=== PATIENT | female | born 1985 | race Two or more races ===

== ENCOUNTER 2024-11-21 12:46 | Emergency (ER) | payer MEDICAID, SELFPAY ==
[2024-11-21 12:47] VITALS: BMI 47.2
--- NOTE | 2024-11-21 13:06 | XR_ITS ---
Examination: Venous duplex lower extremity sonogram, bilateral. Date and time of exam: November 21, 2024 1406 hours INDICATIONS: Bilateral leg swelling beginning 5 days ago Technique: Multiple sonographic images of the deep venous system have been obtained. B-mode/2-D grayscale imaging of vascular structures and Doppler spectral analysis (waveforms) and color performed Both legs are examined. Findings: Deep venous systems do not demonstrate abnormal echogenicity. All visualized deep veins exhibit compressibility. All visualized deep veins exhibit augmentation. Impression: Negative for deep vein thrombosis
--- NOTE | 2024-11-21 13:06 | PD.EDADULT ---
ED General RME/HPI General Chief complaint: General Adult/Misc Complain Stated complaint: BLE SWELLING X 4 DAYS; THIS IS NEW Time Seen by Provider: 11/21/24 12:54 Source: patient Arrival date/time: 11/21/24 12:46 39-year-old female with no known medical history presents to the emergency room with a chief complaint of bilateral lower extremity swelling. Patient states she was recently on a flight from [place] to [place] and since then her swelling has progressively gotten worse. Mode of arrival: ambulatory Limitations: no limitations Related Data Allergies Allergy/AdvReac Type Severity Reaction Status Date / Time avocado Allergy RESPIRATORY Verified 11/21/24 12:50 DISTRESS Review of Systems Review of Systems Systems Reviewed: All systems reviewed, normal except as documented Constitutional Constitutional: Reports system reviewed and no additional complaints, except as documented, Denies fatigue, Denies fever(s), Denies headache(s) and Denies weakness Eyes Eyes: Reports system reviewed and no additional complaints, except as documented, Denies blurry vision and Denies change in vision ENT Ears, Nose, Mouth, and Throat: Reports system reviewed and no additional complaints, except as documented, Denies otalgia, Denies headache(s), Denies nasal congestion, Denies throat swelling and Denies vertigo Cardiovascular Cardiovascular: Reports system reviewed and no additional complaints, except as documented, Denies chest pain, Denies dyspnea and Denies dyspnea on exertion Respiratory Respiratory: Reports system reviewed and no additional complaints, except as documented, Denies chest congestion, Denies cough, Denies dyspnea, Denies dyspnea on exertion and Denies wheezing Gastrointestinal Gastrointestinal: Reports system reviewed and no additional complaints, except as documented, Denies abdominal pain, Denies cramping, Denies nausea and Denies vomiting Genitourinary Genitourinary: Reports system reviewed and no additional complaints, except as documented Musculoskeletal Musculoskeletal: Reports system reviewed and no additional complaints, except as documented, Denies back pain and Reports joint swelling Integumentary/Breasts Skin/Breast: Reports system reviewed and no additional complaints, except as documented and Denies wounds Neurologic Neurologic: Reports system reviewed and no additional complaints, except as documented, Denies confusion, Denies headache(s), Denies lack of coordination, Denies vertigo and Denies weakness Psychiatric Psychiatric: Reports system reviewed and no additional complaints, except as documented, Denies anxiety, Denies confusion, Denies depression, Denies paranoia, Denies suicidal ideation and Denies tactile hallucinations Endocrine Endocrine: Reports system reviewed and no additional complaints, except as documented and Denies fatigue Hematologic/Lymphatic Hematologic/Lymphatic: Reports system reviewed and no additional complaints, except as documented and Denies lymphadenopathy Allergic/Immunologic Allergic/Immunologic: Reports system reviewed and no additional complaints, except as documented, Denies throat swelling, Denies urticaria and Denies wheezing Past Medical History Past Medical History CARDIAC: Negative Congestive Heart Failure RESPIRATORY: Negative Chronic Obstructive Pulmonary Disease (COPD) GENITOURINARY: Negative Renal Disease ENDOCRINE: Negative Diabetes Mellitus Type 1 or Diabetes Mellitus Type 2 Social History SMOKING STATUS: Former smoker ED Exam General Limitations: Present no limitations General appearance: Present alert and in no apparent distress Head Head exam: Present atraumatic Eye Eye exam: Present normal appearance, PERRL and EOMI ENT ENT exam: Present normal exam, normal oropharynx and mucous membranes moist Neck Neck exam: Present normal inspection, full ROM and trachea midline Chest Chest inspection: Present normal inspection and symmetric chest wall rise Respiratory Respiratory exam: Present normal lung sounds bilaterally Cardiovascular Cardiovascular exam: Present regular rate, normal rhythm and normal heart sounds Abdominal Exam Abdominal exam: Present soft and normal bowel sounds Extremities Exam Extremities exam: Present normal inspection and full ROM Expanded Lower Extremity Exam Hip/Pelvis exam: Present normal inspection Upper leg exam: Present normal inspection Knee exam: Present normal inspection Lower leg exam: Present swelling and other (+1 edema to the bilateral lower extremities) Ankle exam: Present swelling Foot/toe exam: Present swelling Neurovascular/Tendon exam: Present normal capillary refill Gait: observed and normal Back Exam Back exam: Present normal inspection and full ROM Neurological Exam Neurological exam: Present alert, oriented X3 and CN II-XII intact Psychiatric Psychiatric exam: Present normal affect and normal mood Skin Skin exam: Present warm, dry, intact and normal color Course Quality Measures none Orders Category Date Time Status US venous doppler LE BI Stat Exams 11/21/24 13:06 Completed CBC Stat Lab 11/21/24 13:23 Completed CMP [Comprehensive Metabolic Panel] Stat Lab 11/21/24 13:23 Completed cloNIDine HCL [Catapres] Med 11/21/24 13:18 Discontinued 0.1 mg PO X1 ONE Vital Signs Vital signs: Vital Signs Temperature 98.1 F 11/21/24 13:07 Pulse Rate 98 11/21/24 13:07 Respiratory Rate 18 11/21/24 13:07 Blood Pressure 171/104 H 11/21/24 13:07 Pulse Oximetry (%) 97 11/21/24 13:07 Oxygen Delivery Method Room Air 11/21/24 13:07 O2 saturation 97% within normal limits [facility] Patient data External records reviewed:: [facility] previous records Clinical information provided by:: patient Social determinants that could affect healthcare access:: none Patient has the following chronic illnesses:: No chronic illness How is presenting disease/condition affected by chronic disease/condition?: no chronic disease Evaluation data The following diagnostics were reviewed and interpreted by me:: lab results and radiology exam(s) Lab and/or radiology exams considered but not ordered:: Labs and radiology exams considered and ordered Interpretation Summary: N/A Medications Medications considered but not ordered:: N/A Medication administrations:: Medication Administration History Discontinued Medications Clonidine (Clonidine Hcl 0.1 Mg Tablet) 0.1 mg PO X1 ONE Stop: 11/21/24 13:19 Last Admin: 11/21/24 13:43 Dose: Not Given Documented By: DEREK Non-Admin Reason: Contraindicated N/A Consultations Consultation(s) initiated? (list below): No Diagnosis Differential Diagnosis ED Complaint MDM: DVT/lower extremity swelling/cellulitis/ Most likely diagnosis given after review of the tests above:: Lower extremity swelling Admission Indicated Admission indicated?: not indicated Explain why admission is indicated or not indicated:: N/A Admission Request Was there a request for admission?: No Disposition Plan Disposition Plan: Discharge Discharge Attestation Discharge Attestation: The patient and all family members were given an opportunity to ask questions and understood the discharge instructions. Discharge instructions specifically effects, indications for sooner follow up or return to the emergency department, and the expected course of current diagnosis. Patient condition: Stable Medical Decision Making Differential Diagnosis Differential Diagnosis: DVT/lower extremity swelling/cellulitis/ Lab Data 11/21/24 13:23 11/21/24 13:23 Labs: Lab Results 11/21/24 Range/Units 13:23 WBC 7.2 (3.6-11.0) Thou/mm3 RBC 3.70 L (4.00-5.20) Miln/mm3 Hgb 11.2 L (12.0-16.0) g/dL Hct 32.3 L (36.0-46.0) % MCV 87 (80-100) fL MCH 30.3 (25.0-35.0) pg MCHC 34.7 (31.0-37.0) g/dl RDW Std Deviation 41.4 (36.4-46.3) fL Plt Count 200 (140-440) Thou/mm3 Neut % (Auto) 69 (37-80) % Lymph % (Auto) 22 (10-50) % Sibley % (Auto) 8 (0-12) % Eos % (Auto) 1 (0-10) % Baso % (Auto) 0 (0-2.5) % Neut # (Auto) 4.9 (1.8-7.7) Thou/mm3 Lymph # (Auto) 1.6 (1.0-4.8) Thou/mm3 Sibley # (Auto) 0.6 (0.0-0.8) Thou/mm3 Eos # (Auto) 0.1 (0.0-0.5) Thou/mm3 Baso # (Auto) 0.0 (0.0-0.2) Thou/mm3 Immature Gran # (Auto) 0.01 H (0.00-0.00) Thou/mm3 Absolute Nucleated RBC 0.00 (0.00-0.00) Thou/mm3 Immature Gran % 0 (0-0) % Nucleated RBC % 0 (0) /100 WBC Sodium 142 (136-145) mMol/L Potassium 3.8 (3.4-5.1) mMol/L Chloride 108 H (98-107) mMol/L Carbon Dioxide 26.8 (20.0-31.0) mMol/L Anion Gap 7 (7-16) BUN 10 (9-23) mg/dL Creatinine 0.7 (0.6-1.3) mg/dL Estim Creat Clear Calc 140.9 (>60) mL/min eGFR > 60 (60 - ) See Note BUN/Creatinine Ratio 14 (12-20) Ratio Glucose 83 (74-106) mg/dL Calculated Osmolality 281 (275-295) Calcium 8.9 (8.3-10.6) mg/dL Corrected Calcium 9.1 (8.5-10.1) mg/dL Total Bilirubin 0.3 (0.3-1.2) mg/dL AST 28 (0-34) U/L ALT 22 (10-49) U/L Alkaline Phosphatase 100 (46-116) U/L Total Protein 6.6 (5.7-8.2) gm/dL Albumin 3.8 (3.5-5.0) gm/dL Globulin 2.8 (2.3-3.5) gm/dL Albumin/Globulin Ratio 1.4 (1.2-2.2) Discharge Plan Plan Patient Disposition: HOME (Self Care) Disposition Comment: Stable Prescriptions/Referrals Referrals: Shanice Rollins NP [Primary Care Provider] - In 1 week Problem List Clinical Impression: Swelling of both lower extremities Patient/Caregiver Discharge Instructions Education Materials: ED Leg Swelling in Both Legs Additional Instructions: Please follow-up with your primary care provider in the next 24 to 48 hours. Ultrasound of your lower extremities was completed and was negative for any blood clots. Your blood work was negative for any acute findings. For any evidence of worsening signs or symptoms return to emergency room immediately Print Language: Hebrew Stand Alone Forms: Bridgette Award Info., Patient Portal Info Letter PA/DORYS Supervising Physician LIZZETH/DORYS Supervising Physician: Dr Powers
[2024-11-21 13:07] VITALS: BP 171/104; BP 194/105; PULSE 98; RESP 18; TEMP 36.7; O2SAT 97
[2024-11-21 13:41] VITALS: BP 156/86; PULSE 80; RESP 18; O2SAT 97
[2024-11-21 13:43] VITALS: BP 156/86
[2024-11-21 13:48] LABS: Basophils % (Auto) 0 % (0-2.5); Eosinophils # (Auto) 0.1 Thou/mm3 (0.0-0.5); Eosinophils % (Auto) 1 % (0-10); Hematocrit 32.3 % (36.0-46.0); Hemoglobin 11.2 g/dL (12.0-16.0); Immature Granulocytes % (Auto) 0 % (0-0); Immature Granulocytes Auto 0.01 Thou/mm3 (0.00-0.00); Lymphocytes # (Auto) 1.6 Thou/mm3 (1.0-4.8); Lymphocytes % (Auto) 22 % (10-50); Mean Corpuscular HGB Conc 34.7 g/dl (31.0-37.0); Mean Corpuscular Hemoglobin 30.3 pg (25.0-35.0); Mean Corpuscular Volume 87 fL (80-100); Monocytes # (Auto) 0.6 Thou/mm3 (0.0-0.8); Monocytes % (Auto) 8 % (0-12); Neutrophils # (Auto) 4.9 Thou/mm3 (1.8-7.7); Neutrophils % (Auto) 69 % (37-80); Nucleated Red Blood Cell % 0 /100 WBC (0); Platelet Count 200 Thou/mm3 (140-440); RDW Standard Deviation 41.4 fL (36.4-46.3); White Blood Count 7.2 Thou/mm3 (3.6-11.0)
[2024-11-21 13:57] LABS: Alanine Aminotransferase 22 U/L (10-49); Albumin, Serum 3.8 gm/dL (3.5-5.0); Albumin/Globulin Ratio 1.4 (1.2-2.2); Alkaline Phosphatase 100 U/L (46-116); Anion Gap 7 (7-16); Aspartate Amino Transferase 28 U/L (0-34); BUN/Creatinine Ratio 14 Ratio (12-20); Bilirubin,Total 0.3 mg/dL (0.3-1.2); Blood Urea Nitrogen 10 mg/dL (9-23); Calcium 8.9 mg/dL (8.3-10.6); Calcium (Corrected) 9.1 mg/dL (8.5-10.1); Carbon Dioxide 26.8 mMol/L (20.0-31.0); Chloride 108 mMol/L (98-107); Creatinine (Component) 0.7 mg/dL (0.6-1.3); Estimated Creatinine Clearance 140.9 mL/min (>60); Globulin 2.8 gm/dL (2.3-3.5); Glucose 83 mg/dL (74-106); Osmolality,Calculated 281 (275-295); Potassium 3.8 mMol/L (3.4-5.1); Sodium 142 mMol/L (136-145); Total Protein 6.6 gm/dL (5.7-8.2); eGFR > 60 See Note
== END 2024-11-21 14:55 | disposition home or self-care (01) ==
PROVIDERS: Nurse Practitioner Family; Emergency Provider Emergency Medicine; PCP Nurse Practitioner Family
DX: M79.89 Other specified soft tissue disorders (principal)
CPT/HCPCS: 36415; 80053; 85025; 93970; 99284

== ENCOUNTER 2025-03-15 11:01 | Emergency (ER) | payer BC, MEDICAID, SELFPAY ==
[2025-03-15 11:11] VITALS: BP 157/86; PULSE 94; RESP 18; TEMP 36.4; O2SAT 99; BMI 45.4
--- NOTE | 2025-03-15 11:24 | XR_ITS ---
Examination: Complete OB ultrasound, less than 14 weeks, transabdominal Date and time of exam: March 15, 2025 1343 hours INDICATIONS: No heart tones on examination by provider today Technique: Obstetrical ultrasound images less than 14 weeks performed via transabdominal imaging Findings: Uterus 15.7 cm Intrauterine gestation, pole 8.3 cm corresponds to 14 weeks 1 day gestational age No cardiac motion no movement Right ovary 3.6 cm arterial flow Left ovary 6.6 cm arterial flow 4.3 cm cyst IMPRESSION: demise
--- NOTE | 2025-03-15 11:25 | PD.EDRME ---
Rapid Medical Screening Exam RME Arrival date/time: 03/15/25 11:01 39-year-old female with no known medical history was sent to the emergency room by her PCP due to them being unable to get any heart tones during an ultrasound visit. Patient denies any vaginal bleeding vaginal cramping or any abdominal pain. I have greeted and performed a focused initial assessment of this patient. A comprehensive ED assessment and evaluation of the patient, analysis of all test results, and completion of the medical decision making process will be conducted by additional ED providers. Chief Complaint: OB/Uterine Contractions Vital signs: Vital Signs Temperature 97.5 F 03/15/25 11:11 Pulse Rate 94 03/15/25 11:11 Respiratory Rate 18 03/15/25 11:11 Blood Pressure 157/86 H 03/15/25 11:11 Pulse Oximetry (%) 99 03/15/25 11:11 Oxygen Delivery Method Room Air 03/15/25 11:11 Vital signs reviewed by provider: Yes
[2025-03-15 12:07] LABS: Collection Type, Urine Clean Catch
[2025-03-15 12:09] LABS: Bacteria,Urine Rare; Bilirubin,Urine Negative (Negative); Blood,Urine Negative (Negative); Clarity,Urine Clear (Clear/Hazy); Color,Urine Colorless (Lt Yel-Yel); Glucose, Urine Negative (Negative); Ketones,Urine Negative (Negative); Leukocyte Esterase,Urine Negative (Negative); Nitrite,Urine Negative (Negative); PH,Urine 6.5 (5.0-7.0); Protein,Urine Negative (Neg - Trace); RBC,Urine 1 /hpf (0-3); Specific Gravity,Urine 1.003 (1.001-1.035); Squamous Epithelial Cell,Urine 1 /hpf (0-5); Urobilinogen,Urine Negative mg/dL (0.0-1.0); WBC,Urine < 1 /hpf (0-5)
[2025-03-15 12:23] LABS: Basophils # (Auto) 0.0 Thou/mm3 (0.0-0.2); Basophils % (Auto) 0 % (0-2.5); Eosinophils # (Auto) 0.1 Thou/mm3 (0.0-0.5); Eosinophils % (Auto) 1 % (0-10); Hematocrit 32.8 % (36.0-46.0); Hemoglobin 11.6 g/dL (12.0-16.0); Immature Granulocytes Auto 0.01 Thou/mm3 (0.00-0.00); Lymphocytes # (Auto) 1.4 Thou/mm3 (1.0-4.8); Lymphocytes % (Auto) 20 % (10-50); Mean Corpuscular HGB Conc 35.4 g/dl (31.0-37.0); Mean Corpuscular Hemoglobin 30.4 pg (25.0-35.0); Mean Corpuscular Volume 86 fL (80-100); Monocytes # (Auto) 0.5 Thou/mm3 (0.0-0.8); Monocytes % (Auto) 8 % (0-12); Neutrophils # (Auto) 5.1 Thou/mm3 (1.8-7.7); Neutrophils % (Auto) 72 % (37-80); Nucleated Red Blood Cell # 0.00 Thou/mm3 (0.00-0.00); Nucleated Red Blood Cell % 0 /100 WBC (0); Platelet Count 164 Thou/mm3 (140-440); RDW Standard Deviation 40.9 fL (36.4-46.3); Red Blood Count 3.81 Miln/mm3 (4.00-5.20); White Blood Count 7.1 Thou/mm3 (3.6-11.0)
[2025-03-15 13:03] LABS: Alanine Aminotransferase 10 U/L (10-49); Albumin, Serum 3.9 gm/dL (3.5-5.0); Albumin/Globulin Ratio 1.4 (1.2-2.2); Alkaline Phosphatase 83 U/L (46-116); Anion Gap 13 (7-16); Aspartate Amino Transferase 18 U/L (0-34); BUN/Creatinine Ratio 8 Ratio (12-20); Beta HCG,Quantitative 2257 mIU/mL (<5.0); Bilirubin,Total 0.3 mg/dL (0.3-1.2); Blood Urea Nitrogen 6 mg/dL (9-23); Calcium 8.5 mg/dL (8.3-10.6); Calcium (Corrected) 8.6 mg/dL (8.5-10.1); Carbon Dioxide 22.8 mMol/L (20.0-31.0); Chloride 106 mMol/L (98-107); Creatinine (Component) 0.8 mg/dL (0.6-1.3); Estimated Creatinine Clearance 120.6 mL/min (>60); Globulin 2.7 gm/dL (2.3-3.5); Glucose 93 mg/dL (74-106); Osmolality,Calculated 280 (275-295); Potassium 3.9 mMol/L (3.4-5.1); Sodium 142 mMol/L (136-145); Total Protein 6.6 gm/dL (5.7-8.2); eGFR > 60 See Note
--- NOTE | 2025-03-15 13:31 | EDNOTE_ITS ---
ED OB Contraction Preg RMI/HPI General Chief complaint: OB/Uterine Contractions Stated complaint: US this am, no heart tones, 14 weeks OB Time Seen by Provider: 03/15/25 13:27 Arrival date/time: 03/15/25 11:01 RME / HPI RME / HPI Narrative: 39-year-old female with no known medical history was sent to the emergency room by her PCP due to them being unable to get any heart tones during an ultrasound visit. Patient denies any vaginal bleeding vaginal cramping or any abdominal pain. Patient is 14 weeks . Related Data Allergies Allergy/AdvReac Type Severity Reaction Status Date / Time avocado Allergy RESPIRATORY Verified 03/15/25 11:07 DISTRESS Review of Systems Review of Systems Narrative Review of Systems: Review of system reviewed and within normal limits except mentioned in HPI ED Exam Narrative Physical exam: VITAL SIGNS: Reviewed. GENERAL APPEARANCE: Alert and interactive, follows commands, no acute distress, HEAD AND FACE: Non-traumatic. ENT: PERRL, pink conjunctivitis, eyelid no trauma, Mucous membrane moist. NECK: Supple, nontender, no nuchal rigidity. CHEST: No tenderness, no crepitus, no paradoxical movement, no retractions. LUNGS: Clear, well ventilated, symmetric, no rales, no wheezing, no ronchi, no stridor, good breath sounds bilaterally. HEART: Regular rate, regular rhythm, no murmur, no gallops. ABDOMEN: Soft, positive bowel sounds, nondistended, no guarding, nontender, no rebound, no masses, RECTAL: Deferred. GENITAL: Deferred. NEUROLOGICAL: Gross motor function intact sensory function intact, Appropriate for age. MUSCULOSKELETAL: low back nontender, full range of motion. EXTREMITIES: Nontender, full range of motion. SKIN: Color pink, dry, no rash, no lacerations, no abrasions, no contusions. LYMPHATICS: Deferred. Course Quality Measures none Orders Category Date Time Status US OB <= 14 weeks fetus Stat Exams 03/15/25 11:24 Taken ABO/RH Type Stat Lab 03/15/25 12:00 Completed Beta HCG,Quantitative Stat Lab 03/15/25 12:00 Completed CBC Stat Lab 03/15/25 12:00 Completed CMP [Comprehensive Metabolic Panel] Stat Lab 03/15/25 12:00 Completed UA [Urinalysis] Stat Lab 03/15/25 11:44 Completed Vital Signs Vital signs: Vital Signs Temperature 97.5 F 03/15/25 11:11 Pulse Rate 94 03/15/25 11:11 Respiratory Rate 18 03/15/25 11:11 Blood Pressure 157/86 H 03/15/25 11:11 Pulse Oximetry (%) 99 03/15/25 11:11 Oxygen Delivery Method Room Air 03/15/25 11:11 OB/Uterine Contractions MDM Narrative MDM Narrative:: 39-year-old female with no known medical history was sent to the emergency room by her PCP due to them being unable to get any heart tones during an ultrasound visit. Patient denies any vaginal bleeding vaginal cramping or any abdominal pain. Patient is 14 weeks . Ultrasound showed no cardiac activity noted no movement noted. Results discussed with the family and patient. I spoke with Dr Emerson, patient's [employer], who told me patient is stable to discharge home, follow-up in the clinic Tuesday for a plan regarding demise. Patient data External records reviewed:: None Clinical information provided by:: patient Social determinants that could affect healthcare access:: none Patient has the following chronic illnesses:: None How is presenting disease/condition affected by chronic disease/condition?: no chronic disease Evaluation data The following diagnostics were reviewed and interpreted by me:: lab results and radiology exam(s) Lab and/or radiology exams considered but not ordered:: None Interpretation Summary: See results MDM Medications / Prescriptions Medications or Prescriptions considered but not ordered:: None Medication administrations:: None Consultations Consultation(s) initiated? (list below): Yes Consultation #1 (Physician, Specialty, Details): I consulted Dr Emerson [employer], who told me that patient can be discharged home follow-up in the clinic Tuesday for demise plan Diagnosis OB Contractions Differential Diagnosis: other ( demise, missed , pr egnant 14 weeks) Most likely diagnosis given after review of the tests above:: demise Admission Indicated Admission indicated?: not indicated Explain why admission is indicated or not indicated:: Stable for discharge Admission Request Was there a request for admission?: No Disposition Plan Disposition Plan: Discharge Discharge Attestation Discharge Attestation: The patient and all family members were given an opportunity to ask questions and understood the discharge instructions. Discharge instructions specifically effects, indications for sooner follow up or return to the emergency department, and the expected course of current diagnosis. Patient condition: Stable Discharge Plan Plan Patient Disposition: HOME (Self Care) Discharge Disposition comment: Stable Prescriptions/Referrals Referrals: Shanice Rollins NP [Primary Care Provider] - In 1 week Problem List Clinical Impression: demise Patient/Caregiver Discharge Instructions Discharge Activity: activity as tolerated Education Materials: Loss Grieving, Stillbirth Additional Instructions: Thank you for the opportunity for serving you today. You are stable for discharged . You are advised to: Follow-up with your [employer], Dr Emerson, Tuesday Return to ED for worsening of symptoms, pelvic pain, fever, vaginal bleeding Increase oral fluids Print Language: Sierra Leonean Stand Alone Forms: Bridgette Award Info., Patient Portal Info Letter PA/DORYS Supervising Physician LIZZETH/DORYS Supervising Physician: MD Rob
[2025-03-15 15:25] VITALS: BP 143/78; PULSE 86; RESP 18; TEMP 36.6; O2SAT 99
== END 2025-03-15 15:26 | disposition home or self-care (01) ==
PROVIDERS: Emergency Provider Nurse Practitioner Family; PCP Nurse Practitioner Family
DX: O02.1 Missed abortion (principal)
CPT/HCPCS: 36415; 76801; 80053; 81001; 84702; 85025; 86900; 86901; 99284

== ENCOUNTER 2025-03-19 05:55 | Day surgery (SDC) | payer BC, MEDICAID, SELFPAY ==
--- NOTE | 2025-03-18 11:01 | ESHP_ITS ---
RE: REYNALDO KELLER : 1985 DATE OF ADMISSION: 03/19/2025 DATE OF SURGERY: 03/19/2025 HISTORY OF PRESENT ILLNESS: This is a 39-year-old 4, para 1-0-2-1 who presents to the office today saying that she had an ultrasound unofficially on Tuesday, which showed no cardiac activity. She subsequently went to the emergency room where an ultrasound also confirmed no cardiac activity. In the office today, the fetus measures 12 weeks and 5 days by crown-rump length and there is no cardiac activity. Findings are consistent with missed . Her previous ultrasound on 02/27 showed an abnormal nuchal translucency thickening, which is associated with aneuploidy. This may be the cause of the miscarriage. ALLERGIES: NO KNOWN DRUG ALLERGIES. MEDICATIONS: multivitamin 1 p.o. daily. PAST MEDICAL HISTORY: Psoriatic arthritis, delivery, posttraumatic stress disorder, advanced maternal age, abnormal Pap smear showing low-grade squamous intraepithelial lesion, obesity, asthma, migraine headaches, depression, and anxiety. SOCIAL HISTORY: She denies any alcohol, drug use, or smoking. FAMILY HISTORY: Father, maternal uncle, and maternal aunt have diabetes. Maternal grandmother and maternal uncle have hypertension. Paternal grandfather and maternal grandfather and maternal uncle have asthma. Paternal grandmother has obesity. OBSTETRIC HISTORY: In 2006 spontaneous AB at 6 weeks gestation, no D and C; in 01/2009, 4 weeks spontaneous AB, no D and C; in 10/05/2009, 36 weeks delivery, 6 pound 8 ounce female with no complications. PAST SURGICAL HISTORY: delivery in 2009 and appendectomy. REVIEW OF SYSTEMS: She denies any chest pain, palpitations, cough, fever, shortness of breath, or lower extremity pain. She denies any vaginal bleeding, pelvic pain or passage of tissue. PHYSICAL EXAMINATION: VITAL SIGNS: Blood pressure 126/72, heart rate 98, respirations 18, temperature 98.6, and weight 264 pounds. HEENT: Oropharynx and sclerae are clear. LUNGS: Clear to auscultation bilaterally. HEART: Regular rate and rhythm. ABDOMEN: Old Pfannenstiel scar noted. EXTREMITIES: Nontender. SKIN: No gross rashes or lesions. NEUROLOGIC: No focal deficits. ASSESSMENT AND PLAN: Missed at 12 weeks gestation. PLAN: Suction dilatation and curettage. Informed consent was obtained. The patient was made aware of the risks, complications, alternatives, and benefits of the proposed procedure and she agrees. She is aware of the risk of bleeding, leading to blood transfusion, uterine perforation with injury to bladder or bowel or uterus, need for emergency laparotomy to stop or controlled bleeding, infection in the uterus and abdomen, blood clots in the legs and lungs, anesthesia reactions, and complications. This was explained in layman's terms in a manner of the patient clearly understood and she verbalized understanding. Her blood type is O positive. DT: 10:41:03 TT: 11:00:00 Ref: [id number] - TID: [id number] [email or web address]
[2025-03-18 15:04] VITALS: BMI 45.3
[2025-03-18 15:37] LABS: Basophils # (Auto) 0.0 Thou/mm3 (0.0-0.2); Basophils % (Auto) 0 % (0-2.5); Eosinophils # (Auto) 0.0 Thou/mm3 (0.0-0.5); Eosinophils % (Auto) 1 % (0-10); Hematocrit 32.5 % (36.0-46.0); Hemoglobin 11.0 g/dL (12.0-16.0); Immature Granulocytes Auto 0.02 Thou/mm3 (0.00-0.00); Lymphocytes # (Auto) 1.4 Thou/mm3 (1.0-4.8); Lymphocytes % (Auto) 20 % (10-50); Mean Corpuscular HGB Conc 33.8 g/dl (31.0-37.0); Mean Corpuscular Hemoglobin 30.6 pg (25.0-35.0); Mean Corpuscular Volume 90 fL (80-100); Monocytes # (Auto) 0.4 Thou/mm3 (0.0-0.8); Monocytes % (Auto) 6 % (0-12); Neutrophils # (Auto) 5.1 Thou/mm3 (1.8-7.7); Neutrophils % (Auto) 73 % (37-80); Nucleated Red Blood Cell # 0.00 Thou/mm3 (0.00-0.00); Nucleated Red Blood Cell % 0 /100 WBC (0); Platelet Count 170 Thou/mm3 (140-440); RDW Standard Deviation 42.8 fL (36.4-46.3); Red Blood Count 3.60 Miln/mm3 (4.00-5.20); White Blood Count 6.9 Thou/mm3 (3.6-11.0)
[2025-03-18 15:56] LABS: INR 1.0 (0.9-1.3); Partial Thromboplastin Time 26.8 Seconds (22.0-36.0); Prothrombin Time 10.5 Seconds (9.0-12.2)
[2025-03-18 16:11] LABS: Alanine Aminotransferase 9 U/L (10-49); Albumin, Serum 3.7 gm/dL (3.5-5.0); Albumin/Globulin Ratio 1.4 (1.2-2.2); Alkaline Phosphatase 82 U/L (46-116); Anion Gap 11 (7-16); Aspartate Amino Transferase 13 U/L (0-34); BUN/Creatinine Ratio 15 Ratio (12-20); Beta HCG,Quantitative 989 mIU/mL (<5.0); Bilirubin,Total 0.4 mg/dL (0.3-1.2); Blood Urea Nitrogen 12 mg/dL (9-23); Calcium 8.5 mg/dL (8.3-10.6); Calcium (Corrected) 8.7 mg/dL (8.5-10.1); Carbon Dioxide 21.6 mMol/L (20.0-31.0); Chloride 106 mMol/L (98-107); Creatinine (Component) 0.8 mg/dL (0.6-1.3); Estimated Creatinine Clearance 120.3 mL/min (>60); Globulin 2.7 gm/dL (2.3-3.5); Glucose 106 mg/dL (74-106); Osmolality,Calculated 277 (275-295); Potassium 3.7 mMol/L (3.4-5.1); Sodium 139 mMol/L (136-145); Total Protein 6.4 gm/dL (5.7-8.2); eGFR > 60 See Note
[2025-03-19] VITALS (10 sets, daily range): BP systolic 101–135; BP diastolic 68–90; PULSE 85–108; RESP 13–20; TEMP 36.3–36.7; O2SAT 95–100; BMI 47.9
[2025-03-19] MEDS: RINGERS LACTATED 1000 ML 1,000 ML 30 ML IV (10:30)
--- NOTE | 2025-03-19 13:00 | SUR.PHASEI ---
1245: Pt received in [facility] via [facility]. Report from Natacha GARCIA and Bro HURT. Pt obtunded. Does respond with eye opening then drifts back to sleep. Resp even, unlabored. VS stable. Scant vaginal bleeding on peripad. No c/o pain.
--- NOTE | 2025-03-19 13:10 | SUR.PHASEI ---
Addendum entered by Gloria Tam RN 03/19/25 13:19: Note for 1111hr incorrect. Should reflect time to be 1311hr. Original Note: 1111: Pt has been resting with no complaints voiced. Resp even, unlabored. VS stable. Scant amount of bleeding on peripad. Denies pain.
--- NOTE | 2025-03-19 13:28 | SUR.PHASEII ---
1315: Pt more awake, alert. VS stabe. Sitting up tolerating po fluids with no difficulty swallowing and no n/v. 1325: Report to Sergio GARCIA.
[2025-03-19] MEDS: HYDROmorphone INJ 2 MG/ML VIAL 0.4 MG IVP (13:51)
--- NOTE | 2025-03-19 14:49 | SUR.PHASEII ---
1355: Assumed care. Pt resting with no further complaints of pain. Resp even, unlabored. VS stable. at bedside. 1420: Pt states pain level coming down. Rates pain level 2/10. Resp even, unlabored. VS stable. Peripad with scant amount of vaginal bleeding. 1435: Pt fully awake, oriented x3. Pt and stated understanding of discharge instructions. Pt dressed and assisted to transport chair. Ambulation steady. Pt discharged from [facility] in stable condition.
--- NOTE | 2025-03-19 16:55 | ESOP_ITS ---
RE: REYNALDO KELLER : 1985 DATE OF OPERATION: 03/19/2025 PREOPERATIVE DIAGNOSIS: Missed at 12 weeks' gestation. POSTOPERATIVE DIAGNOSIS: Missed at 12 weeks gestation. PROCEDURE PERFORMED: Suction, dilatation, and curettage. SURGEON: Sudeep Emerson DO. SUPERVISOR PAIRING AND INSPECTING: None. ANESTHESIA: General. ANESTHESIOLOGIST: Bro Loredo CRNA. ESTIMATED BLOOD LOSS: 40 mL. COMPLICATIONS: None. COUNTS: Correct. PATHOLOGY: Products of conception. FINDINGS: A 12-week size mobile, anteverted and boggy uterus. Cervix was long and closed. Large amount of products of conception obtained. DESCRIPTION OF PROCEDURE: After appropriate informed consent was obtained and patient was made aware of the risks, complications, alternatives, and benefits of the proposed procedure, she was taken to the operating room where she underwent induction of general anesthesia. She was placed in dorsal lithotomy position. She was prepped and draped in the usual sterile fashion. A timeout was performed. A bivalve speculum was placed in the vagina. A single-tooth tenaculum was used to grasp the anterior lip of the cervix. The cervix was dilated to accommodate a 12 mm suction curette. The 12 mm suction curette was placed in the uterine cavity and the uterine cavity was curetted gently in all quadrants and products of conception were obtained. A sharp curette was followed in the entire 4 quadrants of the uterine cavity and no additional products of conception were obtained. A final pass of the suction curette was obtained and no additional products of conception were obtained. There was no bleeding after administration of the Pitocin and Methergine. Most of the specimen was submitted through to the [facility] miscarriage test for genetic testing. The remaining tissue was submitted to the pathologist. All instruments were removed from the vagina. She was reversed from general anesthesia in supine position and transferred to recovery room in stable condition. DT: 13:02:33 TT: 16:54:00 Ref: [id number] - TID: [id number]
== END 2025-03-19 14:35 | disposition home or self-care (01) ==
PROVIDERS: PCP Nurse Practitioner Family; Referring Provider Specialist; Visit Provider Specialist
PROC: (CPT 58120; principal; 2025-03-19 11:15)
DX: O02.1 Missed abortion (principal); O09.521 Supervision of elderly multigravida, first trimester; Z3A.12 12 weeks gestation of pregnancy; Z90.49 Acquired absence of other specified parts of digestive tract
CPT/HCPCS: 59820; 36415; 80053; 84702; 85025; 85610; 85730; 86850; 86900; 86901; A4217; J0131; J0690; J1171; J2210; J2250; J2704; J3010; J3490; J7120

== ENCOUNTER 2025-08-20 13:00 | Emergency (ER) | payer SELFPAY ==
[2025-08-20 13:20] VITALS: BP 155/92; PULSE 97; RESP 18; TEMP 37.1; O2SAT 98
--- NOTE | 2025-08-20 13:36 | XR_ITS ---
Examination: Abdomen sonogram, Limited Date and time of exam: August 20, 2025, 1354 hours INDICATIONS: Epigastric pain nausea vomiting beginning 5 months ago Technique: Real-time liz scale transabdominal sonographic images of the upper abdomen obtained. Findings: Multiple gallstones Gallbladder wall 0.47 cm Common bile duct 0.9 cm Pancreatic head 3.3 cm Liver 16.4 cm fatty infiltration Normal hepatopetal portal venous Patent IVC IMPRESSION: Cholelithiasis Abnormally thickened gallbladder wall Abnormal enlarged common bile duct 0.9 cm Recommend MRCP follow-up to exclude cholecystitis and to exclude stones in the common bile duct
[2025-08-20 14:33] LABS: Basophils # (Auto) 0.0 Thou/mm3 (0.0-0.2); Basophils % (Auto) 0 % (0-2.5); Eosinophils # (Auto) 0.1 Thou/mm3 (0.0-0.5); Eosinophils % (Auto) 2 % (0-10); Hematocrit 35.1 % (36.0-46.0); Hemoglobin 11.9 g/dL (12.0-16.0); Immature Granulocytes Auto 0.01 Thou/mm3 (0.00-0.00); Lymphocytes # (Auto) 1.2 Thou/mm3 (1.0-4.8); Lymphocytes % (Auto) 23 % (10-50); Mean Corpuscular HGB Conc 33.9 g/dl (31.0-37.0); Mean Corpuscular Hemoglobin 30.0 pg (25.0-35.0); Mean Corpuscular Volume 88 fL (80-100); Monocytes # (Auto) 0.4 Thou/mm3 (0.0-0.8); Monocytes % (Auto) 8 % (0-12); Neutrophils # (Auto) 3.5 Thou/mm3 (1.8-7.7); Neutrophils % (Auto) 67 % (37-80); Nucleated Red Blood Cell # 0.00 Thou/mm3 (0.00-0.00); Nucleated Red Blood Cell % 0 /100 WBC (0); Platelet Count 197 Thou/mm3 (140-440); RDW Standard Deviation 42.4 fL (36.4-46.3); Red Blood Count 3.97 Miln/mm3 (4.00-5.20); White Blood Count 5.2 Thou/mm3 (3.6-11.0)
[2025-08-20 14:52] LABS: Alanine Aminotransferase 174 U/L (10-49); Albumin, Serum 4.2 gm/dL (3.5-5.0); Albumin/Globulin Ratio 1.4 (1.2-2.2); Alkaline Phosphatase 170 U/L (46-116); Anion Gap 10 (7-16); Aspartate Amino Transferase 151 U/L (0-34); BUN/Creatinine Ratio 9 Ratio (12-20); Bilirubin,Total 1.3 mg/dL (0.3-1.2); Blood Urea Nitrogen 8 mg/dL (9-23); Calcium 8.7 mg/dL (8.3-10.6); Calcium (Corrected) 8.7 mg/dL (8.5-10.1); Carbon Dioxide 28.1 mMol/L (20.0-31.0); Chloride 105 mMol/L (98-107); Creatinine (Component) 0.9 mg/dL (0.6-1.3); Globulin 2.9 gm/dL (2.3-3.5); Glucose 106 mg/dL (74-106); Lipase 29 U/L (12-53); Osmolality,Calculated 283 (275-295); Potassium 4.2 mMol/L (3.4-5.1); Sodium 143 mMol/L (136-145); Total Protein 7.1 gm/dL (5.7-8.2); eGFR > 60 See Note
[2025-08-20 14:56] LABS: Collection Type, Urine Clean Catch
--- NOTE | 2025-08-20 14:57 | PD.EDRME ---
Rapid Medical Screening Exam RME Arrival date/time: 08/20/25 13:00 This is a case of 39-year-old female who came in with the upper abdominal pain mostly on the right upper quadrant for 2 days with nausea vomiting patient have history of galltsone Chief Complaint: Abdominal Pain Time Seen by Provider: 08/20/25 13:22 Vital signs: Vital Signs Temperature 98.7 F 08/20/25 13:20 Pulse Rate 97 08/20/25 13:20 Respiratory Rate 18 08/20/25 13:20 Blood Pressure 155/92 H 08/20/25 13:20 Pulse Oximetry (%) 98 08/20/25 13:20 Oxygen Delivery Method Room Air 08/20/25 13:20 Exam: Moderate tenderness on the right upper quadrant no guarding no rebound no rigidity Clinical Impression: Abdominal pain
[2025-08-20 15:06] LABS: Bacteria,Urine Rare; Bilirubin,Urine Negative (Negative); Blood,Urine Negative (Negative); Clarity,Urine Hazy (Clear/Hazy); Color,Urine Yellow (Lt Yel-Yel); Glucose, Urine Negative (Negative); Hyaline Casts,Urine < 1 /hpf (0-1); Ketones,Urine Negative (Negative); Leukocyte Esterase,Urine Negative (Negative); Nitrite,Urine Negative (Negative); PH,Urine 6.5 (5.0-7.0); Protein,Urine Trace (Neg - Trace); RBC,Urine 7 /hpf (0-3); Specific Gravity,Urine 1.017 (1.001-1.035); Squamous Epithelial Cell,Urine 8 /hpf (0-5); Urobilinogen,Urine Negative mg/dL (0.0-1.0); WBC,Urine 2 /hpf (0-5)
[2025-08-20 15:08] LABS: HCG Qualitative,Urine Negative
--- NOTE | 2025-08-20 16:25 | EDNOTE_ITS ---
ED General RME/HPI General Chief complaint: Abdominal Pain Stated complaint: abdominal pain n/vomiting Time Seen by Provider: 08/20/25 13:22 Arrival date/time: 08/20/25 13:00 CC: Right upper quadrant abdominal pain with radiation straight into the back nausea and vomiting denies any diarrhea onset 2 days ago. Denies prior history of similar events. Denies any chest pain difficulty breathing headache fever shortness of breath. Localized pain is 3-6 on a 10 scale depending on whether she has eaten or not pain always is more severe after eating. RME / HPI RME / HPI narrative: 08/20/25 13:00 This is a case of 39-year-old female who came in with the upper abdominal pain mostly on the right upper quadrant for 2 days with nausea vomiting patient have history of galltsone Exam: Moderate tenderness on the right upper quadrant no guarding no rebound no rigidity Impression: Abdominal pain Related Data Home Medications ?Medication ?Instructions ?Recorded ?Confirmed vit no.95-ferrous 1 tab PO DAILY 03/18/25 fumarate 28 mg-folic acid 800 mcg tablet () Allergies Allergy/AdvReac Type Severity Reaction Status Date / Time avocado Allergy RESPIRATORY Verified 08/20/25 13:04 DISTRESS Review of Systems Review of Systems Narrative Review of Systems: GEN: No fever, no chills, no weight loss EYES: No discharge, no visual changes, no pain HEENT: No ear pain, no congestion, no sore throat PULM: No shortness of breath, no cough, no congestion CV: No chest pain, no dyspnea on exertion, no palpitations GI: No nausea, no vomiting, no diarrhea, + pain, no constipation : No frequency, no urgency, no dysuria MUSC/SKEL: No joint pain, no back pain SKIN: No rash PSYCH: No hallucinations, no depression HEME/LYMPH: No easy bleeding or bruising tendencies NEURO: No weakness, no headache Past Medical History Past Medical History NEUROLOGIC: Negative Neurological Disorders or Seizures CARDIAC: Negative Cardiac Disorders or Congestive Heart Failure RESPIRATORY: Negative Chronic Obstructive Pulmonary Disease (COPD) GASTROINTESTINAL: Positive Gastrointestinal Disorders and Obesity GENITOURINARY: Negative Genitourinary Disorders or Renal Disease REPRODUCTIVE: Positive Previous Pregnancies MUSCULOSKELETAL: Positive Musculoskeletal Disorders and Arthritis ENDOCRINE: Positive Hypoglycemia; Negative Endocrine Disorders, Diabetes Mellitus Type 1 or Diabetes Mellitus Type 2 HEMATOLOGIC: Negative Blood Disorders OTHER HISTORY: Positive Hospitalization and Chicken Pox; Negative Autoimmune Disease, Shingles, Blood Transfusions, Blood Transfusion Reaction, Anesthesia Reactions or Cancer Family History FAMILY HISTORY: Positive Family Cardiac Disorders, Family Cancer and Family Surgery; Negative Family Psychiatric Problems, Family Respiratory Disorders, Family Gastrointestinal Problems or Family Anesthesia Reaction Surgical History SURGICAL: Positive Abdominal Surgery and Section (x1) Social History SMOKING STATUS: Former smoker ED Exam Narrative Physical exam: [General: Obese not in any acute distress Head normocephalic HEENT: Within acceptable limits Neck is supple nontender Chest equal chest rise nontender to palpation Respiratory: Clear to auscultation no wheezes crackles or rubs CV: Rate rhythm is regular no murmurs rubs or clicks Abdomen right upper quadrant tenderness with palpation. Back: No CVA tenderness no spinous process tenderness from cervical spine thoracic and lumbar spine Skin: Intact no petechiae rash induration ulceration or crepitus Extremities: Moving all extremity against resistance cap refill less than 2 seconds neurosensory intact Neuro: Awake alert oriented x3 Glascow coma 15 no focal deficits] Course Course Course Narrative: After the examination of the patient at 1624 was noted that the patient is stable, and his pain is well-managed without any medication as long as she is not eating. At this time it was determined that MRCP is necessary however is not available at our facility at this time. Patient was offered transfer to another facility which the patient refused. Patient is stable left to be discharged home with pain medication to follow-up in the morning for an MRCP patient is aware that she will need to be transferred to another facility for ERCP. Quality Measures none Orders Category Date Time Status MRI Screening NOW Care 08/20/25 14:44 Active MR MRCP Stat Exams 08/20/25 Ordered US gall bladder Stat Exams 08/20/25 13:36 Completed CBC Stat Lab 08/20/25 14:11 Completed Comprehensive Metabolic Panel Stat Lab 08/20/25 14:11 Completed HCG Qualitative,Urine Stat Lab 08/20/25 14:50 Completed Lipase Stat Lab 08/20/25 14:11 Completed Urinalysis Stat Lab 08/20/25 14:50 Completed Ondansetron Odt [Zofran Odt] Med 08/20/25 16:16 Discontinued 4 mg PO X1 ONE Vital Signs Vital signs: Vital Signs Temperature 98.7 F 08/20/25 13:20 Pulse Rate 97 08/20/25 13:20 Respiratory Rate 18 08/20/25 13:20 Blood Pressure 155/92 H 08/20/25 13:20 Pulse Oximetry (%) 98 08/20/25 13:20 Oxygen Delivery Method Room Air 08/20/25 13:20 Discharge Plan Plan Patient Disposition: HOME (Self Care) Prescriptions/Referrals Prescriptions/Med Rec: No Action PNV no.95-ferrous fumarate-FA [] 28 mg iron- 800 mcg tablet 1 tab PO DAILY Patient Comments: Take 1 tablet by mouth once a day Problem List Clinical Impression: Abdominal pain, Cholelithiasis, Common bile duct dilatation Patient/Caregiver Discharge Instructions Other Activity Instructions:: Take the nausea medicine prescribed as needed. Avoid all greasy spicy and fatty foods return at 7 AM tomorrow morning for MRCP. Be aware that if the MRCP is positive you will to be transferred to another facility for ERCP. Education Materials: What Are Gallstones, Treating Gallstones Print Language: Kinyarwanda Stand Alone Forms: Bridgette Award Info., Work/School Release, Patient Portal Info Letter PA/SUPERVISOR [employer]ESSING Supervising Physician PA/SUPERVISOR [employer]ITOR PROCESSING Supervising Physician: Amari England ENP [facility] Clinical Information Provided by: patient Medical Records reviewed [facility] Meds/Rx considered, not ordered None Labs/Rad/Tests considered, not ordered None Chronic Illness/Social Conditions which may negatively complicate care or outcome(s)-explain: None or not applicable Explain: Obesity EKG EKG not done Labs Labs: interpreted by co Lab(s) Interpretation(s): CBC shows no acute leukocytosis she has a mild anemia with a hemoglobin 11.9 and hematocrit of 35.1. CMP shows no significant electrolyte imbalances no renal impairment however the patient has an elevated T. bili of 1.3 and AST of 151 ALT of 174 and alk phos of 170. Lipase is within acceptable limits Urine is negative for urinary tract infection. Imaging Imaging interpretation: interpreted by co Imaging Interpretation(s): Gallbladder is positive for stone gallbladder wall is mildly thickened and CBD is dilated. Medication Administration(s) Medication Administration History Discontinued Medications Ondansetron HCl (Ondansetron Odt 4 Mg Tabrap) 4 mg PO X1 ONE; Protocol Stop: 08/20/25 16:17 None Diagnosis Differential Diagnosis ED Complaint MDM: Cholelithiasis cholecystitis choledocholithiasis
[2025-08-20] MEDS: ONDANSETRON ODT 4 MG TABRAP PO (16:37)
== END 2025-08-20 17:31 | disposition home or self-care (01) ==
PROVIDERS: Nurse Practitioner Family; Emergency Provider Family Medicine
DX: K80.20 Calculus of gallbladder without cholecystitis without obstruction (principal); E66.9 Obesity, unspecified
CPT/HCPCS: 36415; 76705; 80053; 81001; 81025; 83690; 85025; 99283; Q0162; A9270

== ENCOUNTER 2025-08-21 06:32 | Emergency (ER) | payer MEDICAID, SELFPAY ==
[2025-08-21] VITALS (8 sets, daily range): BP systolic 125–139; BP diastolic 69–105; PULSE 74–100; RESP 17–20; TEMP 36.5–37.1; O2SAT 94–98; BMI 43.4
--- NOTE | 2025-08-21 | XR_ITS ---
MRI abdomen, without contrast. MRCP Date and time of exam: 08/21/2025 at 7:56 a.m. CLINICAL HISTORY: Abdominal pain nausea and vomiting worsening in the last 1 week. Gallbladder ultrasound has shown gallstones and thickened gallbladder wall and enlarged common bile Technique: Multiple axial and coronal images of the abdomen have been obtained with the Siemens 1.5T MRI scanner. Images obtained included T1 weighted transverse images, T2-weighted transverse images, T2-weighted transverse images fat-suppressed, T2 weighted haste fat suppressed transverse images, T1 weighted images, in and out of phase images, T2-weighted coronal images, breath hold, T2 weighted haze coronal images as well as T2 weighted coronal thick slab images, MRCP. Findings: The gallbladder is slightly but definitely distended measuring 3.6 cm in diameter. There are numerous very tiny gallstones in the gallbladder lumen, and I believe that there are are a few very tiny stones in the cystic duct the common bile duct is slightly dilated measuring 7.6 mm there is a small mucosal fold in the distal end of the common bile duct, however I do not definitely identify any stones in the common bile duct. No abnormalities are seen in the liver. The spleen appears slightly definitely enlarged. In the right kidney there is a tiny 5 mm benign cyst seen posteroinferiorly, in the left kidney there is a 1.4 cm diameter fluid-filled cyst seen superiorly. No worrisome abnormalities are seen in the kidneys. The uncinate process and head of the pancreas appear normal in size, however there is diffuse mild swelling of the body and tail of the pancreas measuring 2.3 cm in diameter the pancreatic duct is well seen and normal all the way down to its junction with the distal common bile duct. There our curvilinear strands of fluid density within the interstitium of the pancreas, and there is a large amount of fluid surrounding the pancreas extending throughout the retroperitoneal space, mixed extending around the stomach and medial aspect of the spleen and extending laterally to the lateroconal fascia posterior to the descending colon there is also some retroperitoneal fluid extending caudad anterior to the aorta and in the anterior pararenal space on the left. No other abnormalities are identified. IMPRESSION: 1. Numerous very tiny gallstones are seen in the gallbladder fundus, gallbladder is slightly definitely abnormally distended, and I suspect that there are several very tiny gallstones within the cystic duct this is on sequence 5001 image 30. These tiny stones in the cystic duct are also seen on sequence 3001 image 13 2. Mild definite splenomegaly 3 there is definite evidence of significant acute pancreatitis as outlined above. There is slight diffuse swelling of the body the pancreas and there is very extensive retroperitoneal fluid surrounding the pancreas and extending laterally to the left, please see above discussion the pancreatic duct does appear normal.
--- NOTE | 2025-08-21 07:13 | EKG_ITS ---
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
[2025-08-21] MEDS: SODIUM CHLORIDE 0.9% 1000 ML 1,000 ML 100 ML IV (08:44)
[2025-08-21 08:51] LABS: Basophils # (Auto) 0.0 Thou/mm3 (0.0-0.2); Basophils % (Auto) 0 % (0-2.5); Eosinophils # (Auto) 0.0 Thou/mm3 (0.0-0.5); Eosinophils % (Auto) 1 % (0-10); Hematocrit 38.5 % (36.0-46.0); Hemoglobin 12.9 g/dL (12.0-16.0); Immature Granulocytes Auto 0.01 Thou/mm3 (0.00-0.00); Lymphocytes # (Auto) 0.9 Thou/mm3 (1.0-4.8); Lymphocytes % (Auto) 11 % (10-50); Mean Corpuscular HGB Conc 33.5 g/dl (31.0-37.0); Mean Corpuscular Hemoglobin 29.9 pg (25.0-35.0); Mean Corpuscular Volume 89 fL (80-100); Monocytes # (Auto) 0.6 Thou/mm3 (0.0-0.8); Monocytes % (Auto) 7 % (0-12); Neutrophils # (Auto) 6.4 Thou/mm3 (1.8-7.7); Neutrophils % (Auto) 81 % (37-80); Nucleated Red Blood Cell # 0.00 Thou/mm3 (0.00-0.00); Nucleated Red Blood Cell % 0 /100 WBC (0); Platelet Count 200 Thou/mm3 (140-440); RDW Standard Deviation 42.5 fL (36.4-46.3); Red Blood Count 4.31 Miln/mm3 (4.00-5.20); White Blood Count 7.9 Thou/mm3 (3.6-11.0)
[2025-08-21 09:11] LABS: INR 1.0 (0.9-1.3); Partial Thromboplastin Time 25.9 Seconds (22.0-36.0); Prothrombin Time 10.6 Seconds (9.0-12.2)
[2025-08-21 09:30] LABS: Alanine Aminotransferase 212 U/L (10-49); Albumin, Serum 4.1 gm/dL (3.5-5.0); Albumin/Globulin Ratio 1.4 (1.2-2.2); Alkaline Phosphatase 188 U/L (46-116); Amylase 2911 U/L (30-118); Anion Gap 9 (7-16); Aspartate Amino Transferase 178 U/L (0-34); BUN/Creatinine Ratio 9 Ratio (12-20); Bilirubin,Total 2.1 mg/dL (0.3-1.2); Blood Urea Nitrogen 9 mg/dL (9-23); Calcium 8.6 mg/dL (8.3-10.6); Calcium (Corrected) 8.6 mg/dL (8.5-10.1); Carbon Dioxide 28.3 mMol/L (20.0-31.0); Chloride 105 mMol/L (98-107); Creatinine (Component) 1.0 mg/dL (0.6-1.3); Estimated Creatinine Clearance 93.9 mL/min (>60); Globulin 2.9 gm/dL (2.3-3.5); Glucose 112 mg/dL (74-106); Lipase > 3500 U/L (12-53); Osmolality,Calculated 282 (275-295); Potassium 4.1 mMol/L (3.4-5.1); Sodium 142 mMol/L (136-145); Total Protein 7.0 gm/dL (5.7-8.2); eGFR > 60 See Note
[2025-08-21] MEDS: MORPHINE SULF INJ 4 MG/ML VIAL IVP ×2 (09:51→12:02)
[2025-08-21] MEDS: ONDANSETRON INJ 2 MG/ML INJ 2 ML 4 MG IVP ×4 (09:51→17:57)
[2025-08-21] MEDS: SODIUM CHLORIDE 0.9% 1000 ML 1,000 ML 999 ML IV (09:52)
--- NOTE | 2025-08-21 10:19 | PC.CM ---
Addendum entered by Miguelangel Garrison RN 08/21/25 15:39: 1538-Received call from [facility], patient has a bed assigned Bed 586 and number for report [phone] Ext. [phone]. Information provided to ER JULIANO Guadalupe. Addendum entered by Miguelangel Garrison RN 08/21/25 12:08: 1205-Patient has been accepted at [facility] by Dr. Andre Borja, they are pending bed availability on their telemetry unit, they will call us back with a bed and number for report when available. They have requested the patient be made NPO at this time. ER JULIANO Guadalupe has been notified. Addendum entered by Miguelangel Garrison RN 08/21/25 10:53: 1050[facility]. She is reviewing with her placement team at this time. Awaiting call back from them at this time. Addendum entered by Miguelangel Garrison RN 08/21/25 10:22: 1020-Call to [facility] Sissy DE GUZMAN RN has declined transfer based on their provider Dr. Guerra does not perform ERCP, service not available. Original Note: 1015-Received call from ER Dr. Rivas, patient is needing transfer for GI services, needing ERCP. Transfer packet created and imaging placed on CD. Sent images via synapse to [facility] and [facility].
--- NOTE | 2025-08-21 11:13 | PD.EDABDPN ---
ED Abdominal Pain RME/HPI General Chief Complaint: Abdominal Pain Stated complaint: TOLD TO [facility] FOR MRCP Time seen by provider: 08/21/25 07:08 Arrival date/time: 08/21/25 06:32 Limitations: no limitations RME / HPI RME / HPI narrative: 39 year old female with no stated medical history presents to the ED for evaluation of right upper abdominal pain with radiation to her back today. Accompanied by nausea and vomiting. Patient reports she was evaluated here yesterday and instructed to return today for MRCP. Patient states her pain remains unchanged and has no new symptoms. Denies fevers, chills, chest pain, cough, shortness of breath, diarrhea, constipation, or urinary symptoms. No history of similar symptoms. Related Data Home Medications ?Medication ?Instructions ?Recorded ?Confirmed vit no.95-ferrous 1 tab PO DAILY 03/18/25 03/18/25 fumarate 28 mg-folic acid 800 mcg tablet () Allergies Allergy/AdvReac Type Severity Reaction Status Date / Time avocado Allergy RESPIRATORY Verified 08/21/25 06:33 DISTRESS Review of Systems Review of Systems Systems Reviewed: All systems reviewed, normal except as documented Past Medical History Past Medical History RESPIRATORY: Positive Respiratory Disorders (previous asthma) GASTROINTESTINAL: Positive Gastrointestinal Disorders and Obesity REPRODUCTIVE: Positive Previous Pregnancies MUSCULOSKELETAL: Positive Musculoskeletal Disorders and Arthritis ENDOCRINE: Positive Hypoglycemia OTHER HISTORY: Positive Hospitalization and Chicken Pox Family History FAMILY HISTORY: Positive Family Cardiac Disorders, Family Cancer and Family Surgery; Negative Family Anesthesia Reaction Surgical History SURGICAL: Positive Abdominal Surgery and Section Social History SMOKING STATUS: Never smoker ED Exam General Limitations: Present no limitations General appearance: Present alert, in no apparent distress, obese and other Head Head exam: Present atraumatic Eye Eye exam: Present normal appearance, PERRL and EOMI ENT ENT exam: Present normal exam, normal oropharynx and mucous membranes moist Neck Neck exam: Present normal inspection, full ROM and trachea midline Chest Chest inspection: Present normal inspection and symmetric chest wall rise Respiratory Respiratory exam: Present normal lung sounds bilaterally Cardiovascular Cardiovascular exam: Present regular rate, normal rhythm and normal heart sounds Abdominal Exam Abdominal exam: Present soft, tenderness (over the upper abdomen both right and left) and normal bowel sounds; Absent distention, guarding, rebound or rigidity Extremities Exam Extremities exam: Present normal inspection and full ROM Back Exam Back exam: Present normal inspection and full ROM Neurological Exam Neurological exam: Present alert, oriented X3 and CN II-XII intact Psychiatric Psychiatric exam: Present normal affect and normal mood Skin Skin exam: Present warm, dry, intact and normal color Course Quality Measures none Orders Category Date Time Status Manager Operating NOW Care 08/21/25 07:13 Active Continuous Pulse Oximetry NOW Care 08/21/25 07:13 Active EKG (ED ONLY) *Do not use* NOW Care 08/21/25 07:13 Completed Insert IV NOW Care 08/21/25 07:13 Active MRI Screening NOW Care 08/21/25 07:12 Active Referral - [employer] Stat Cons 08/21/25 09:56 Active EKG (ED Only) Stat Exams 08/21/25 07:13 Draft MR MRCP Stat Exams 08/21/25 Completed Amylase Stat Lab 08/21/25 08:27 Completed CBC Stat Lab 08/21/25 08:27 Completed Comprehensive Metabolic Panel Stat Lab 08/21/25 08:27 Completed Lipase Stat Lab 08/21/25 08:27 Completed Partial Thromboplastin Time Stat Lab 08/21/25 08:27 Completed Prothrombin Time with INR Stat Lab 08/21/25 08:27 Completed HYDROmorphone INJ [Dilaudid Inj] Med 08/21/25 15:23 Discontinued 1 mg IVP X1 ONE HYDROmorphone INJ [Dilaudid Inj] Med 08/21/25 17:48 Discontinued 1 mg IVP X1 ONE Morphine* Inj Med 08/21/25 09:30 Discontinued 4 mg IVP X1 ONE Morphine* Inj Med 08/21/25 11:56 Discontinued 4 mg IVP X1 ONE Ondansetron Inj [Zofran Inj] Med 08/21/25 09:30 Discontinued 4 mg IVP X1 ONE Ondansetron Inj [Zofran Inj] Med 08/21/25 11:56 Discontinued 4 mg IVP X1 ONE Ondansetron Inj [Zofran Inj] Med 08/21/25 15:23 Discontinued 4 mg IVP X1 ONE Ondansetron Inj [Zofran Inj] Med 08/21/25 17:48 Discontinued 4 mg IVP X1 ONE Sodium Chloride 0.9% 1000 ml [Ns] 1,000 ml Med 08/21/25 07:13 Discontinued IV 100 mls/hr Sodium Chloride 0.9% 1000 ml [Ns] 1,000 ml Med 08/21/25 12:15 Discontinued IV 200 mls/hr Sodium Chloride 0.9% 1000 ml [Ns] 1,000 ml Med 08/21/25 09:30 Discontinued IV 999 mls/hr Vital Signs Vital signs: Vital Signs Temperature 97.7 F 08/21/25 06:54 Pulse Rate 92 08/21/25 06:54 Respiratory Rate 18 08/21/25 06:54 Blood Pressure 135/84 H 08/21/25 06:54 Pulse Oximetry (%) 97 08/21/25 06:54 Oxygen Delivery Method Room Air 08/21/25 06:54 Pulse ox is 97% on room air which is adequate. Abdominal Pain MDM MDM Narrative MDM Narrative:: IEvangelina, shanita scribing for and in the presence of Dr. Rivas. The MRCP shows numerous very tiny gallstones are seen in the gallbladder fundus and several tiny gallstones within the cystic duct. Also shows evidence of acute pancreatitis. 1110: I spoke with hospitalists at [facility]. Discussed patients PMHx, HPI, ED course, exam findings, labs, and radiology results. States she will consult with their GI team to make sure they can performed an ERCP prior to accepting for transfer. The patient has been accepted for transfer at [facility]. Through ED course, the patient had been given multiple doses of pain medication. Patient data External records reviewed:: [facility] previous records Clinical information provided by:: patient Social determinants that could affect healthcare access:: none Patient has the following chronic illnesses:: No chronic medical hx reported How is presenting disease/condition affected by chronic disease/condition?: no chronic disease Evaluation data The following diagnostics were reviewed and interpreted by me:: lab results and EKG tracing(s) (EKG @ 08:29am, interpreted by me, normal sinus rhythm, rate 75, no STEMI. ) Lab and/or radiology exams considered but not ordered:: None Interpretation Summary: Ordering Physician: Toño Rivas MD Date of Service: 08/21/25 Procedure(s): MR MRCP Accession Number(s): [id number] cc: Toño iRvas MD; Kenneth Plaza MD~ MRI abdomen, without contrast. MRCP Date and time of exam: 08/21/2025 at 7:56 a.m. CLINICAL HISTORY: Abdominal pain nausea and vomiting worsening in the last 1 week. Gallbladder ultrasound has shown gallstones and thickened gallbladder wall and enlarged common bile Technique: Multiple axial and coronal images of the abdomen have been obtained with the Siemens 1.5T MRI scanner. Images obtained included T1 weighted transverse images, T2-weighted transverse images, T2-weighted transverse images fat-suppressed, T2 weighted haste fat suppressed transverse images, T1 weighted images, in and out of phase images, T2-weighted coronal images, breath hold, T2 weighted haze coronal images as well as T2 weighted coronal thick slab images, MRCP. Findings: The gallbladder is slightly but definitely distended measuring 3.6 cm in diameter. There are numerous very tiny gallstones in the gallbladder lumen, and I believe that there are are a few very tiny stones in the cystic duct the common bile duct is slightly dilated measuring 7.6 mm there is a small mucosal fold in the distal end of the common bile duct, however I do not definitely identify any stones in the common bile duct. No abnormalities are seen in the liver. The spleen appears slightly definitely enlarged. In the right kidney there is a tiny 5 mm benign cyst seen posteroinferiorly, in the left kidney there is a 1.4 cm diameter fluid-filled cyst seen superiorly. No worrisome abnormalities are seen in the kidneys. The uncinate process and head of the pancreas appear normal in size, however there is diffuse mild swelling of the body and tail of the pancreas measuring 2.3 cm in diameter the pancreatic duct is well seen and normal all the way down to its junction with the distal common bile duct. There our curvilinear strands of fluid density within the interstitium of the pancreas, and there is a large amount of fluid surrounding the pancreas extending throughout the retroperitoneal space, mixed extending around the stomach and medial aspect of the spleen and extending laterally to the lateroconal fascia posterior to the descending colon there is also some retroperitoneal fluid extending caudad anterior to the aorta and in the anterior pararenal space on the left. No other abnormalities are identified. IMPRESSION: 1. Numerous very tiny gallstones are seen in the gallbladder fundus, gallbladder is slightly definitely abnormally distended, and I suspect that there are several very tiny gallstones within the cystic duct this is on sequence 5001 image 30. These tiny stones in the cystic duct are also seen on sequence 3001 image 13 2. Mild definite splenomegaly 3 there is definite evidence of significant acute pancreatitis as outlined above. There is slight diffuse swelling of the body the pancreas and there is very extensive retroperitoneal fluid surrounding the pancreas and extending laterally to the left, please see above discussion the pancreatic duct does appear normal. Dictated By: Kenneth Plaza MD Signed By: <Electronically signed by Kenneth Plaza MD in [place]> 08/21/25 0901 Medications / Prescriptions Medications or Prescriptions considered but not ordered:: None Medication administrations:: Medication Administration History Discontinued Medications Hydromorphone HCl (Hydromorphone Inj 2 Mg/Ml Vial) 1 mg IVP X1 ONE Stop: 08/21/25 15:24 Last Admin: 08/21/25 15:29 Dose: 1 mg Documented By: JT Hydromorphone HCl (Hydromorphone Inj 2 Mg/Ml Vial) 1 mg IVP X1 ONE Stop: 08/21/25 17:49 Last Admin: 08/21/25 17:57 Dose: 1 mg Documented By: RAMESH Sodium Chloride (Ns) 1,000 mls @ 100 mls/hr IV .Q10H ONE Stop: 08/21/25 17:12 Last Infusion: 08/21/25 16:55 Dose: Infused Documented By: Infusion: 08/21/25 12:36 Dose: 200 mls/hr Documented By: Admin: 08/21/25 08:44 Dose: 100 mls/hr Documented By: RAMESH Sodium Chloride (Ns) 1,000 mls @ 999 mls/hr IV .Q1H1M ONE Stop: 08/21/25 10:30 Last Infusion: 08/21/25 11:00 Dose: Infused Documented By: Admin: 08/21/25 09:52 Dose: 999 mls/hr Documented By: RAMESH Sodium Chloride (Ns) 1,000 mls @ 200 mls/hr IV .Q5H ONE Stop: 08/21/25 17:14 Last Admin: 08/21/25 17:07 Dose: 200 mls/hr Documented By: RAMESH Morphine Sulfate (Morphine Sulf Inj 4 Mg/Ml Vial) 4 mg IVP X1 ONE Stop: 08/21/25 09:31 Last Admin: 08/21/25 09:51 Dose: 4 mg Documented By: RAMESH Morphine Sulfate (Morphine Sulf Inj 4 Mg/Ml Vial) 4 mg IVP X1 ONE Stop: 08/21/25 11:57 Last Admin: 08/21/25 12:02 Dose: 4 mg Documented By: JT Ondansetron HCl (Ondansetron Inj 2 Mg/Ml Inj 2 Ml) 4 mg IVP X1 ONE; Protocol Stop: 08/21/25 09:31 Last Admin: 08/21/25 09:51 Dose: 4 mg Documented By: JT Ondansetron HCl (Ondansetron Inj 2 Mg/Ml Inj 2 Ml) 4 mg IVP X1 ONE; Protocol Stop: 08/21/25 11:57 Last Admin: 08/21/25 12:02 Dose: 4 mg Documented By: JT Ondansetron HCl (Ondansetron Inj 2 Mg/Ml Inj 2 Ml) 4 mg IVP X1 ONE; Protocol Stop: 08/21/25 15:24 Last Admin: 08/21/25 15:30 Dose: 4 mg Documented By: JT Ondansetron HCl (Ondansetron Inj 2 Mg/Ml Inj 2 Ml) 4 mg IVP X1 ONE; Protocol Stop: 08/21/25 17:49 Last Admin: 08/21/25 17:57 Dose: 4 mg Documented By: RAMESH See above Consultations Consultation(s) initiated? (list below): Yes Consultation #1 (Physician, Specialty, Details): As noted above Diagnosis Differential diagnosis abdominal pain: abdominal pain, pancreatitis and other (choellithiasis, choledocolithiasis ) Most likely diagnosis given after review of the tests above:: Acute pancreatitis Dilated common bile duct Stones in the common bile duct Admission Indicated Admission indicated?: not indicated Explain why admission is indicated or not indicated:: Txfer for ERCP Admission Request Was there a request for admission?: No Disposition Plan Disposition Plan: Transfer Discharge Plan Plan Patient Disposition: [facility] Pt Being Transferred to: [facility] Service Needed for Transfer: Gastroenterology Prescriptions/Referrals Prescriptions/Med Rec: No Action PNV no.95-ferrous fumarate-FA [] 28 mg iron- 800 mcg tablet 1 tab PO DAILY Patient Comments: Take 1 tablet by mouth once a day Referrals: Nicole Guerra FNP [Primary Care Provider] - In 1 week Problem List Clinical Impression: Acute pancreatitis, Common bile duct dilation, Common bile duct stone Patient/Caregiver Discharge Instructions Print Language: Vietnamese Stand Alone Forms: Bridgette Award Info., Patient Portal Info Letter
[2025-08-21] MEDS: HYDROmorphone INJ 2 MG/ML VIAL 1 MG IVP ×2 (15:29→17:57)
[2025-08-21] MEDS: SODIUM CHLORIDE 0.9% 1000 ML 1,000 ML 200 ML IV (17:07)
== END 2025-08-21 18:20 | disposition short-term general hospital (02) ==
PROVIDERS: Emergency Provider Family Medicine; PCP Student in an Organized Health Care Education/Training Program
DX: K85.90 Acute pancreatitis without necrosis or infection, unspecified (principal); K80.70 Calculus of gallbladder and bile duct without cholecystitis without obstruction
CPT/HCPCS: 36415; 74181; 80053; 82150; 83690; 85025; 85610; 85730; 93005; 96361; 96374; 96375; 96376; 99285; J1171; J2270; J2405; J7030